=== PATIENT | male | born 1985 | race African-American/Black ===

== ENCOUNTER 2020-06-17 23:26 | Inpatient (IN) | payer OTHER ==
[~2020-06-17] VITALS: Ht 175.3 cm; Wt 84.1 kg
[2020-06-18] VITALS (12 sets, daily range): BP systolic 109–149; BP diastolic 58–93
[2020-06-18] MEDS ORDERED: DEXTROSE 50% 25 GM / 50ML DISP.SYRIN. IV ONE ×8 (00:13→06:15)
[2020-06-18 00:34] LABS: BASO # 0.1 x10^3/uL (0.0-0.2); BASO % 1 % (0-3); EOS # 0.2 x10^3/uL (0.0-0.7); EOS % 2 % (0-3); HEMATOCRIT 28.4 % (39.0-53.0); HEMOGLOBIN 9.4 g/dL (13.0-17.5); LYMPH # 0.7 x10^3/uL (1.0-4.8); LYMPH % 9 % (24-48); MEAN CORPUSCULAR HEMOGLOBIN 29 pg (25-35); MEAN CORPUSCULAR HGB CONC 33 g/dL (31-37); MEAN CORPUSCULAR VOLUME 88 fL (79-100); MONO # 0.4 x10^3/uL (0.0-1.1); MONO % 5 % (0-9); NEUT # 6.8 x10^3/uL (1.8-7.7); NEUT % 84 % (31-73); PLATELET COUNT 370 x10^3/uL (140-400); RED BLOOD COUNT 3.22 x10^6/uL (4.30-5.70); RED CELL DISTRIBUTION WIDTH 14.5 % (11.5-14.5); WHITE BLOOD COUNT 8.2 x10^3/uL (4.0-11.0)
[2020-06-18 01:06] LABS: BILIRUBIN,URINE NEGATIVE (NEG); CLARITY,URINE CLEAR; COLOR,URINE YELLOW; NITRITE,URINE NEGATIVE (NEG); PROTEIN,URINE >=300 mg/dL (NEG-TRACE); UROBILINOGEN,URINE 0.2 mg/dL (0.2 mg/dL)
[2020-06-18 01:08] LABS: CALCIUM 7.6 mg/dL (8.5-10.1); GFR 9.3; POTASSIUM 3.4 mmol/L (3.5-5.1)
[2020-06-18] MEDS ORDERED: IV DEXTROSE 5% - 0.9 % NACL 1,000 ML IV ONE (01:15)
[2020-06-18 01:23] LABS: BACTERIA,URINE FEW /HPF (0-FEW)
[2020-06-18] MEDS ORDERED: IV DEXTROSE 10% 1,000 ML IV SCH (04:45)
--- NOTE | 2020-06-18 05:22 | PHYS DOC ---
Past Medical History Past Medical History: Diabetes-Type II, SD, Other Additional Past Medical Histor: Unable to obtain Past Surgical History: Other Additional Past Surgical Histo: Unable to obtain Smoking Status: Never Smoker Alcohol Use: Occasionally General Adult EDM: Chief Complaint: ALTERED MENTAL STATUS HPI: HPI: Patient is a 34-year-old male who presents to the emergency room after having a hypoglycemic episode. Patient reportedly was at a friend's house and was co mpletely normal prior to event. He then became unconscious and had incontinence. EMS states that there was no report of seizure activity. Patient is unable to provide any history. They gave him D10 twice in route. Patient recently started dialysis. Unclear when last dialysis was. Review of Systems: Review of Systems: Unable to obtain Heart Score: Risk Factors: Risk Factors: DM, Current or recent (<one month) smoker, HTN, HLP, family history of CAD, obesity. Risk Scores: Score 0 - 3: 2.5% MACE over next 6 weeks - Discharge Home Score 4 - 6: 20.3% MACE over next 6 weeks - Admit for Clinical Observation Score 7 - 10: 72.7% MACE over next 6 weeks - Early Invasive Strategies Current Medications: Current Medications Medications (Trade) Dose Ordered Sig/Alirio Start Time Stop Time Status Last Admin Dose Admin Dextrose (Dextrose 50%-Water Syringe) 25 gm 1X ONCE 06/18/20 01:15 06/18/20 01:18 DC 06/18/20 02:25 25 GM Dextrose/Sodium Chloride 1,000 ml @ 75 mls/hr 1X ONCE 06/18/20 01:15 06/18/20 14:34 06/18/20 01:14 125 MLS/HR Allergies: Allergies: Allergies Coded Allergies Type Severity Reaction Last Updated Verified No Known Drug Allergies 06/18/20 No Physical Exam: PE: General: Lethargic, confused. Well Nourished, well hydrated. Cooperative HEENT: Atraumatic, EOMI, PERRL, airway patent, moist oral mucosa Neck: Supple, trachea midline Respiratory: CTA bilaterally, normal effort, no wheezing/crackles CV: RRR, no murmur, cap refill <2 GI: Soft, nondistended, nontender, no masses MSK: No obvious deformities, fistula in left upper extremity Skin: Warm, dry, intact Neuro: A&O x0, speech slurred and limited, sensory and motor grossly intact, no focal deficits Current Patient Data: Labs: Laboratory Tests Test 06/17/20 23:32 06/18/20 00:06 06/18/20 00:50 06/18/20 00:57 Glucose (Fingerstick) 83 mg/dL (70-99) 35 mg/dL (70-99) *L White Blood Count 8.2 x10^3/uL (4.0-11.0) Red Blood Count 3.22 x10^6/uL (4.30-5.70) L Hemoglobin 9.4 g/dL (13.0-17.5) L Hematocrit 28.4 % (39.0-53.0) L Mean Corpuscular Volume 88 fL (79-100) Mean Corpuscular Hemoglobin 29 pg (25-35) Mean Corpuscular Hemoglobin Concent 33 g/dL (31-37) Red Cell Distribution Width 14.5 % (11.5-14.5) Platelet Count 370 x10^3/uL (140-400) Neutrophils (%) (Auto) 84 % (31-73) H Lymphocytes (%) (Auto) 9 % (24-48) L Monocytes (%) (Auto) 5 % (0-9) Eosinophils (%) (Auto) 2 % (0-3) Basophils (%) (Auto) 1 % (0-3) Neutrophils # (Auto) 6.8 x10^3/uL (1.8-7.7) Lymphocytes # (Auto) 0.7 x10^3/uL (1.0-4.8) L Monocytes # (Auto) 0.4 x10^3/uL (0.0-1.1) Eosinophils # (Auto) 0.2 x10^3/uL (0.0-0.7) Basophils # (Auto) 0.1 x10^3/uL (0.0-0.2) Sodium Level 140 mmol/L (136-145) Potassium Level 3.4 mmol/L (3.5-5.1) L Chloride Level 104 mmol/L (98-107) Carbon Dioxide Level 29 mmol/L (21-32) Anion Gap 7 (6-14) Blood Urea Nitrogen 47 mg/dL (8-26) H Creatinine 8.0 mg/dL (0.7-1.3) H Estimated GFR (Cockcroft-Gault) 9.3 Glucose Level 63 mg/dL (70-99) L Calcium Level 7.6 mg/dL (8.5-10.1) L Urine Collection Type Unknown Urine Color Yellow Urine Clarity Clear Urine pH 7.0 (<5.0-8.0) Urine Specific [place] >=1.030 (1.000-1.030) Urine Protein >=300 mg/dL (NEG-TRACE) Urine Glucose (UA) 250 mg/dL (NEG) Urine Ketones (Stick) Negative mg/dL (NEG) Urine Blood Small (NEG) Urine Nitrite Negative (NEG) Urine Bilirubin Negative (NEG) Urine Urobilinogen Dipstick 0.2 mg/dL (0.2 mg/dL) Urine Leukocyte Esterase Negative (NEG) Urine RBC 6-10 /HPF (0-2) Urine WBC 5-10 /HPF (0-4) Urine Squamous Epithelial Cells Mod /LPF Urine Bacteria Few /HPF (0-FEW) Urine Mucus Mod /LPF Test 06/18/20 00:59 06/18/20 02:13 06/18/20 03:25 06/18/20 04:52 Glucose (Fingerstick) 54 mg/dL (70-99) L 24 mg/dL (70-99) *L 46 mg/dL (70-99) *L 41 mg/dL (70-99) *L Laboratory Tests 06/18/20 00:06 Laboratory Tests 06/18/20 00:50 Vital Signs: Vital Signs Date Time Temp Pulse Resp B/P (MAP) Pulse Ox O2 Delivery O2 Flow Rate FiO2 06/18/20 04:04 90.6 59 21 100 90.6 06/17/20 23:30 139/86 (103) Room Air EKG: EKG: [] Radiology/Procedures: Radiology/Procedures: [] Course & Med Decision Making: Course & Med Decision Making Pertinent Labs and Imaging studies reviewed. (See chart for details) Patient is a 34-year-old male who presents to the emergency room with hypoglycemia. Upon arrival patient's glucose is significantly improved and patient is more alert but unable to provide any history. He was not alert enough to eat. He became more lethargic while in the emergency room and his glucose dropped again. He had multiple episodes of hypoglycemia where he required D50. He initially was started on a D5 drip, however he continued to have hypoglycemia and due to his end-stage renal disease and concern for fluid overload he was placed on a D10 drip. Nephrology consult was placed so patient can have dialysis emergently. While in the emergency room he did have a signi ficant drop in temperature. Is unclear at this time the cause of his hypothermia. He initially was normothermic upon arrival to the emergency room. EMS did place an IV in his fistula arm which was removed. Patient will need to be admitted to the ICU for further care and evaluation. Dragon Disclaimer: Dragon Disclaimer: This electronic medical record was generated, in whole or in part, using a voice recognition dictation system. Critical Care Time Critical Care: Authorized and Performed by: Chad Vigil MD Total critical care time: approximately 70 minutes Due to a high probability of clinically significant, life threatening deterio ration, the patient required my highest level of preparedness to intervene emergently and I personally spent this critical care time directly and personally managing the patient. This critical care time included obtaining a history; examining the patient; pulse oximetry; ventilator management if nec essary; ordering and review of studies; arranging urgent treatment with development of a management plan; evaluation of patient's response to treatment; frequent reassessment; discussion with patient/family; and, discussions with other providers. This critical care time was performed to assess and manage the high probability of imminent, life-threatening deterioration that could result in multi-organ failure. It was exclusive of separately billable procedures and treating other patients and teaching time. Please see MDM section and the rest of the note for further information on patient assessment and treatment. Departure Departure Impression: Primary Impression: ESRD (end stage renal disease) Additional Impressions: Severe diabetic hypoglycemia Hypothermia Disposition: ADMITTED INPATIENT Condition: IMPROVED Referrals: NO PCP (PCP) CHAD VIGIL MD Jun 18, 2020 05:22
[2020-06-18 06:02] LABS: BARBITURATES NEG (NEG); BENZODIAZEPINES NEG (NEG); CANNABINOIDS POS (NEG); COCAINE NEG (NEG); METHADONE NEG (NEG); OPIATES NEG (NEG); PHENCYCLIDINE NEG (NEG)
[2020-06-18 06:09] LABS: AMPHETAMINE/METHAMPHETAMINE NEG (NEG)
--- NOTE | 2020-06-18 06:41 | PDOC1 ---
History and Physical Date of Admission Date of Admission 06/18/2020 Identification/Chief Complaint Chief Complaint I do not remember coming to the ER Source Source: Chart review, Patient History of Present Illness History of Present Illness Patient is a 34-year-old gentleman with significant past medical history that includes diabetes type 2 insulin requiring end-stage renal disease on hemodialysis Tuesday essential hypertension who was in his usual state of health until the evening of his admission when apparently he was dropped off by a friend after becoming unconscious at his house. Patient has a recent history of hospital stay at [facility] due to shortness of breath. When asked regarding that event the patient relates to me that he was told he had fluid in his lung. There are no records available for review. The patient has a cough that is productive of clear sputum. The patient denies any recent cold-like symptoms no coughing sneezing no shortness of breath except for what he was told was a matter of congestive heart failure. The patient denies sick contacts no fever or chills have been reported. The patient was found to have a critically low glycemia less than 40 which was treated in the emergency department and we have been asked to admit for further evaluation and treatment. At the present time the patient at the arrival in the intensive care unit is more alert and awake and will be reoriented nevertheless patient is unable to give me details of yesterday's events that led him to come to the emergency department. Patient is oriented in person time place and situation after being directed, he is not exhibiting focal neurological deficits plan of care has been explained in detail no concerns were voiced during my interview Past Medical History Cardiovascular: CAD, CHF, HTN, Hyperlipidemia Renal/: Chronic renal insuff Endocrine: Diabetes Past Surgical History Past Surgical History: No pertinent history Family History Family History: No Significant Social History Smoke: No ALCOHOL: none Drugs: None Current Problem List Problem List Problems Medical Problems: (1) ESRD (end stage renal disease) Status: Acute (2) Hypothermia Status: Acute (3) Severe diabetic hypoglycemia Status: Acute Current Medications Current Medications Current Medications Medications (Trade) Dose Ordered Sig/Alirio Start Time Stop Time Status Last Admin Dose Admin Dextrose (Dextrose 50%-Water Syringe) 25 gm 1X ONCE 06/18/20 06:15 06/18/20 06:16 DC 06/18/20 06:15 25 GM Dextrose/Sodium Chloride 1,000 ml @ 75 mls/hr 1X ONCE 06/18/20 01:15 06/18/20 14:34 06/18/20 01:14 125 MLS/HR Allergies Allergies Allergies Coded Allergies Type Severity Reaction Last Updated Verified No Known Drug Allergies 06/18/20 No ROS Review of System CONSTITUTIONAL: No fever or chills EYES: No recent changes SKIN: No rash or itching CARDIOVASCULAR: No chest pain, syncope, palpitations, or edema RESPIRATORY: No SOB or cough GASTROINTESTINAL: No nausea, vomiting or abdominal pain NEUROLOGICAL: No headaches or weakness ENDOCRINE: No cold or heat intolerance GENITOURINARY: No urgency or frequency of urination MUSCULOSKELETAL: No back pain or joint pain LYMPHATICS: No enlarged lymph nodes PSYCHIATRIC: No anxiety or depression Patient does not recall any events in does not give any symptoms prior to his visit Physical Exam Physical Exam Gen.: well-developed well-nourished in no apparent distress Head: Normal shape atraumatic Eyes: Pupils equal reactive to light and accommodation, normal conjunctivae and lids Ears: Normal shape Nose: Normal shape no trauma Mouth: No exudates of the back of throat no thrush no lesions Neck: Supple no JVD no carotid bruit or lymphadenopathy no thyromegaly Chest: Lungs clear to auscultation with good inspiratory effort no crackles rales or rhonchi Cardiovascular: S1-S2 regular rhythm no murmurs gallops or rubs Abdomen: Bowel sounds present soft nontender no hepatosplenomegaly appreciated sign Extremities: Left arm fistula with palpable thrill. No clubbing no cyanosis no edema peripheral pulses palpated bilaterally Neurological: Alert awake oriented in person time place and situation, cranial nerves II through XII intact, no motor or sensory deficits appreciated Psych: Appropriate mood, cooperative Vitals Vitals Vital Signs Date Time Temp Pulse Resp B/P (MAP) Pulse Ox O2 Delivery O2 Flow Rate FiO2 06/18/20 04:04 90.6 59 21 100 90.6 06/17/20 23:30 139/86 (103) Room Air Labs Labs Laboratory Tests Test 06/17/20 23:32 06/18/20 00:06 06/18/20 00:50 06/18/20 00:57 Glucose (Fingerstick) 83 mg/dL (70-99) 35 mg/dL (70-99) White Blood Count 8.2 x10^3/uL (4.0-11.0) Red Blood Count 3.22 x10^6/uL (4.30-5.70) Hemoglobin 9.4 g/dL (13.0-17.5) Hematocrit 28.4 % (39.0-53.0) Mean Corpuscular Volume 88 fL (79-100) Mean Corpuscular Hemoglobin 29 pg (25-35) Mean Corpuscular Hemoglobin Concent 33 g/dL (31-37) Red Cell Distribution Width 14.5 % (11.5-14.5) Platelet Count 370 x10^3/uL (140-400) Neutrophils (%) (Auto) 84 % (31-73) Lymphocytes (%) (Auto) 9 % (24-48) Monocytes (%) (Auto) 5 % (0-9) Eosinophils (%) (Auto) 2 % (0-3) Basophils (%) (Auto) 1 % (0-3) Neutrophils # (Auto) 6.8 x10^3/uL (1.8-7.7) Lymphocytes # (Auto) 0.7 x10^3/uL (1.0-4.8) Monocytes # (Auto) 0.4 x10^3/uL (0.0-1.1) Eosinophils # (Auto) 0.2 x10^3/uL (0.0-0.7) Basophils # (Auto) 0.1 x10^3/uL (0.0-0.2) Sodium Level 140 mmol/L (136-145) Potassium Level 3.4 mmol/L (3.5-5.1) Chloride Level 104 mmol/L (98-107) Carbon Dioxide Level 29 mmol/L (21-32) Anion Gap 7 (6-14) Blood Urea Nitrogen 47 mg/dL (8-26) Creatinine 8.0 mg/dL (0.7-1.3) Estimated GFR (Cockcroft-Gault) 9.3 Glucose Level 63 mg/dL (70-99) Calcium Level 7.6 mg/dL (8.5-10.1) Urine Collection Type Unknown Urine Color Yellow Urine Clarity Clear Urine pH 7.0 (<5.0-8.0) Urine Specific [place] >=1.030 (1.000-1.030) Urine Protein >=300 mg/dL (NEG-TRACE) Urine Glucose (UA) 250 mg/dL (NEG) Urine Ketones (Stick) Negative mg/dL (NEG) Urine Blood Small (NEG) Urine Nitrite Negative (NEG) Urine Bilirubin Negative (NEG) Urine Urobilinogen Dipstick 0.2 mg/dL (0.2 mg/dL) Urine Leukocyte Esterase Negative (NEG) Urine RBC 6-10 /HPF (0-2) Urine WBC 5-10 /HPF (0-4) Urine Squamous Epithelial Cells Mod /LPF Urine Bacteria Few /HPF (0-FEW) Urine Mucus Mod /LPF Urine Opiates Screen Neg (NEG) Urine Methadone Screen Neg (NEG) Urine Barbiturates Neg (NEG) Urine Phencyclidine Screen Neg (NEG) Urine Amphetamine/Methamphetamine Neg (NEG) Urine Benzodiazepines Screen Neg (NEG) Urine Cocaine Screen Neg (NEG) Urine Cannabinoids Screen Pos (NEG) Urine Ethyl Alcohol Neg (NEG) Test 06/18/20 00:59 06/18/20 02:13 06/18/20 03:25 06/18/20 04:52 Glucose (Fingerstick) 54 mg/dL (70-99) 24 mg/dL (70-99) 46 mg/dL (70-99) 41 mg/dL (70-99) Test 06/18/20 06:07 Glucose (Fingerstick) 336 mg/dL (70-99) Laboratory Tests Test 06/17/20 23:32 06/18/20 00:06 06/18/20 00:50 06/18/20 00:57 Glucose (Fingerstick) 83 mg/dL (70-99) 35 mg/dL (70-99) White Blood Count 8.2 x10^3/uL (4.0-11.0) Red Blood Count 3.22 x10^6/uL (4.30-5.70) Hemoglobin 9.4 g/dL (13.0-17.5) Hematocrit 28.4 % (39.0-53.0) Mean Corpuscular Volume 88 fL (79-100) Mean Corpuscular Hemoglobin 29 pg (25-35) Mean Corpuscular Hemoglobin Concent 33 g/dL (31-37) Red Cell Distribution Width 14.5 % (11.5-14.5) Platelet Count 370 x10^3/uL (140-400) Neutrophils (%) (Auto) 84 % (31-73) Lymphocytes (%) (Auto) 9 % (24-48) Monocytes (%) (Auto) 5 % (0-9) Eosinophils (%) (Auto) 2 % (0-3) Basophils (%) (Auto) 1 % (0-3) Neutrophils # (Auto) 6.8 x10^3/uL (1.8-7.7) Lymphocytes # (Auto) 0.7 x10^3/uL (1.0-4.8) Monocytes # (Auto) 0.4 x10^3/uL (0.0-1.1) Eosinophils # (Auto) 0.2 x10^3/uL (0.0-0.7) Basophils # (Auto) 0.1 x10^3/uL (0.0-0.2) Sodium Level 140 mmol/L (136-145) Potassium Level 3.4 mmol/L (3.5-5.1) Chloride Level 104 mmol/L (98-107) Carbon Dioxide Level 29 mmol/L (21-32) Anion Gap 7 (6-14) Blood Urea Nitrogen 47 mg/dL (8-26) Creatinine 8.0 mg/dL (0.7-1.3) Estimated GFR (Cockcroft-Gault) 9.3 Glucose Level 63 mg/dL (70-99) Calcium Level 7.6 mg/dL (8.5-10.1) Urine Collection Type Unknown Urine Color Yellow Urine Clarity Clear Urine pH 7.0 (<5.0-8.0) Urine Specific [place] >=1.030 (1.000-1.030) Urine Protein >=300 mg/dL (NEG-TRACE) Urine Glucose (UA) 250 mg/dL (NEG) Urine Ketones (Stick) Negative mg/dL (NEG) Urine Blood Small (NEG) Urine Nitrite Negative (NEG) Urine Bilirubin Negative (NEG) Urine Urobilinogen Dipstick 0.2 mg/dL (0.2 mg/dL) Urine Leukocyte Esterase Negative (NEG) Urine RBC 6-10 /HPF (0-2) Urine WBC 5-10 /HPF (0-4) Urine Squamous Epithelial Cells Mod /LPF Urine Bacteria Few /HPF (0-FEW) Urine Mucus Mod /LPF Urine Opiates Screen Neg (NEG) Urine Methadone Screen Neg (NEG) Urine Barbiturates Neg (NEG) Urine Phencyclidine Screen Neg (NEG) Urine Amphetamine/Methamphetamine Neg (NEG) Urine Benzodiazepines Screen Neg (NEG) Urine Cocaine Screen Neg (NEG) Urine Cannabinoids Screen Pos (NEG) Urine Ethyl Alcohol Neg (NEG) Test 06/18/20 00:59 06/18/20 02:13 06/18/20 03:25 06/18/20 04:52 Glucose (Fingerstick) 54 mg/dL (70-99) 24 mg/dL (70-99) 46 mg/dL (70-99) 41 mg/dL (70-99) Test 06/18/20 06:07 Glucose (Fingerstick) 336 mg/dL (70-99) VTE Prophylaxis Ordered VTE Prophylaxis Devices: No VTE Pharmacological Prophylaxi: Yes Assessment/Plan Assessment/Plan Acute hypoglycemia Metabolic encephalopathy secondary to the above currently resolved Hypothermia which may be due to the above as well End-stage renal disease on hemodialysis Tuesday Essential hypertension Diabetes mellitus type 2 insulin requiring Recent hospitalization for CHF and dyspnea as a consequence Plan Recheck glycemia if less than 100 will give example of D50 Resume home medications once available for review Consult nephrology for dialysis Request records from [facility] Supportive measures Follow neurological exam closely Follow hemodynamics DVT prophylaxis with heparin Justifications for Admission Other Justification TEQUILA HOLLIS MD Jun 18, 2020 06:41
[2020-06-18] MEDS ORDERED: guaiFENesin ORAL 200 MG/10 ML LIQUID. PO PRN (06:45)
[2020-06-18] MEDS ORDERED: DOCUSATE SODIUM 100 MG CAPSULE. PO PRN (06:45)
[2020-06-18] MEDS ORDERED: ONDANSETRON PF 4 MG/2 ML VIAL. IV PRN (06:45)
[2020-06-18] MEDS ORDERED: LORazepam 0.5 MG TABLET PO PRN (06:45)
[2020-06-18] MEDS ORDERED: ALBUTEROL SULFATE 2.5 MG/3 ML NEBU. NEB PRN (06:45)
[2020-06-18] MEDS ORDERED: ZOLPIDEM 5 MG TABLET. PO PRN (06:45)
[2020-06-18] MEDS ORDERED: diphenhydrAMINE 50 MG/ML VIAL IVP PRN (06:45)
[2020-06-18] MEDS ORDERED: DEXTROSE 50% 25 GM / 50ML DISP.SYRIN. IV PRN (06:45)
[2020-06-18] MEDS ORDERED: ACETAMINOPHEN 325 MG TABLET. PO PRN (06:45)
--- NOTE | 2020-06-18 07:21 | NUR ---
Patient arrived to room 103 via gurney accompanied by ED staff x2 at 0530. Patient drowsy but oriented and forgetful. Patient attached to ICU monitors--SR on monitor. Patient RA at this time, SIMENTAL, temperature low at 93.3 axillary (india hugger placed on patient), lungs CTA, S1S2 heart tones heard. Patient had BM on arrival to unit--liquid orange/yellow. Patient states he has had chronic diarrhea for [address], patent IV present. Patient has 2 dialysis accesses--L arm fistula and R chest temporary dialysis catheter. Sign placed in room to notify staff of L arm fistula. Dr. Blevins present at bedside on admission--orders received to give 3 amps D50. 3 amps given and patient started on D10 at 100/hr. Blood glucose now improved but will continue to monitor hourly. Patient given soda and shanice crackers/peanut butter. Dr. Blevins notifed of blood glucose change. Patient oriented to unit routines, bed controls, tv controls, call light, diet, and activity. Patient stable at this time, will send off to [facility] to get previous records. Will continue to monitor patient.
[2020-06-18] MEDS: INSULIN LISPRO 300 UNITS/3 ML VIAL. SQ SCH ×3 (08:00→17:37)
[2020-06-18] MEDS ORDERED: INSU100V11 IJ (08:16)
[2020-06-18] MEDS ORDERED: TORS100T3 PO (08:16)
[2020-06-18] MEDS ORDERED: [UNRECOGNIZED DRUG - CODE] PO (08:16)
[2020-06-18] MEDS ORDERED: CLON0.1T PO (08:16)
[2020-06-18] MEDS ORDERED: CALC0.5C8 PO (08:16)
[2020-06-18] MEDS ORDERED: CARV25TA2 PO (08:16)
[2020-06-18] MEDS ORDERED: ATOR40TA59 PO (08:16)
[2020-06-18] MEDS ORDERED: PANT40TA77 PO (08:16)
[2020-06-18] MEDS ORDERED: AMLO-187 PO (08:16)
[2020-06-18] MEDS ORDERED: CALC500T31 PO (08:16)
[2020-06-18] MEDS ORDERED: CEFD300C PO (08:16)
[2020-06-18] MEDS ORDERED: GABA-585 PO (08:16)
[2020-06-18] MEDS ORDERED: ERGO500027 PO (08:16)
[2020-06-18] MEDS ORDERED: diphenhydrAMINE 50 MG/ML VIAL IV PRN ×2 (08:30)
[2020-06-18] MEDS ORDERED: IV NORMAL SALINE 1000ML BAG 1,000 ML IV PRN ×2 (08:30)
[2020-06-18] MEDS ORDERED: DIALYSIS PATIENT. MC PRN (08:30)
--- NOTE | 2020-06-18 08:58 | NUR ---
Requested records from [facility], covid was tested at [facility] and came back negative.
--- NOTE | 2020-06-18 09:33 | PDOC2 ---
CONSULT Date of Consult Date of Consult DATE: 06/18/20 TIME: 09:18 Reason for Consult Reason for Consult: ESRD History of Present Illness Reason for Visit: Patient is a 34-year-old male with past medical history of diabetes type 1 on insulin , recent ESRD on HD , HTN . He was dced on Tuesday morning from [facility] , last HD was on Tuesday . He reports he received Insulin at the hospital prior to dc and is not sure whether it was short or long acting . After dc he was running some errands with friend but his friend notice AMS , Pt reports he was seeing [employer] etc .His friend was dropped off by a friend to [facility] ER . He reports he was at [facility] for Shortness of breath . Currently denies any SOB or CP . C/O cough that is productive of clear sputum Denies fever or chills, No nausea, vomiting or abdominal pain. No headaches . Denies any Urinary complaints - No urgency or frequency of urination In the ED he was found to have a critically low glucose less than 40 and had multiple episodes of hypoglycemia required D50. He initially was started on a D5 drip, however he continued to have hypoglycemia switched to D10 drip. Per ER physician he was lethargic at presentatopn and was unable to give any history but provider confirmed he is not on Sulfonylureas He has been on HD since 3 weeks, has Tunnelled HDC . Has marin AVF, not being used yet . He follows with Dr. Monae Past Medical History Cardiovascular: CAD, CHF, HTN, Hyperlipidemia Renal/: Chronic renal insuff Endocrine: Diabetes Past Surgical History Past Surgical History: No pertinent history Family History Family History: No Significant Social History No ALCOHOL: none Drugs: None Current Problem List Problem List Problems Medical Problems: (1) ESRD (end stage renal disease) Status: Acute (2) Hypothermia Status: Acute (3) Severe diabetic hypoglycemia Status: Acute Current Medications Current Medications Current Medications Dextrose (Dextrose 50%-Water Syringe) 25 gm STK-MED ONCE IV ; Start 06/18/20 at 00:13; Stop 06/18/20 at 00:13; Status DC Dextrose (Dextrose 50%-Water Syringe) 25 gm 1X ONCE IV Last administered on at 02:25; Start 06/18/20 at 01:15; Stop 06/18/20 at 01:18; Status DC Dextrose/Sodium Chloride 1,000 ml @ 75 mls/hr 1X ONCE IV Last administered on 06/18/20at 01:14; Start 06/18/20 at 01:15; Stop 06/18/20 at 14:34 Dextrose (Dextrose 50%-Water Syringe) 25 gm 1X ONCE IV Last administered on 06/18/20at 02:30; Start 06/18/20 at 02:30; Stop 06/18/20 at 02:31; Status DC Dextrose (Dextrose 50%-Water Syringe) 25 gm 1X ONCE IV Last administered on 06/18/20at 03:30; Start 06/18/20 at 04:45; Stop 06/18/20 at 04:46; Status DC Dextrose 1,000 ml @ 100 mls/hr Q10H IV Last administered on 06/18/20at 04:45; Start 06/18/20 at 04:45 Dextrose (Dextrose 50%-Water Syringe) 50 gm 1X ONCE IV Last administered on 06/18/20at 05:08; Start 06/18/20 at 05:15; Stop 06/18/20 at 05:16; Status DC Dextrose (Dextrose 50%-Water Syringe) 25 gm 1X ONCE IV Last administered on 06/18/20at 06:15; Start 06/18/20 at 06:15; Stop 06/18/20 at 06:16; Status DC Dextrose (Dextrose 50%-Water Syringe) 25 gm 1X ONCE IV Last administered on at 06:15; Start 06/18/20 at 06:15; Stop 06/18/20 at 06:16; Status DC Dextrose (Dextrose 50%-Water Syringe) 25 gm 1X ONCE IV Last administered on 06/18/20at 06:15; Start 06/18/20 at 06:15; Stop 06/18/20 at 06:16; Status DC Ondansetron HCl (Zofran) 4 mg PRN Q4HRS PRN IV NAUSEA/VOMITING; Start 06/18/20 at 06:45 Zolpidem Tartrate (Ambien) 5 mg PRN QHS PRN PO INSOMNIA; Start 06/18/20 at 06:45 Acetaminophen (Tylenol) 650 mg PRN Q4HRS PRN PO TEMP OVER 100.4F OR MILD PAIN; Start 06/18/20 at 06:45 Diphenhydramine HCl (Benadryl) 25 mg PRN Q4HRS PRN IVP ITCHING; Start 06/18/20 at 06:45 Docusate Sodium (Colace) 100 mg PRN BID PRN PO HARD STOOLS; Start 06/18/20 at 06:45 Albuterol Sulfate (Ventolin Neb Soln) 2.5 mg PRN Q4HRS PRN NEB SHORTNESS OF BREATH; Start 06/18/20 at 06:45 Guaifenesin (Robitussin) 200 mg PRN Q4HRS PRN PO COUGH; Start 06/18/20 at 06:45 Lorazepam (Ativan) 0.5 mg PRN Q4HRS PRN PO ANXIETY / AGITATION; Start 06/18/20 at 06:45 Insulin Human Lispro (HumaLOG) 0-5 UNITS TIDWMEALS SQ ; Start 06/18/20 at 08:00 Dextrose (Dextrose 50%-Water Syringe) 12.5 gm PRN Q15MIN PRN IV SEE COMMENTS; Start 06/18/20 at 06:45 Sodium Chloride 1,000 ml @ 1,000 mls/hr Q1H PRN IV hypotension; Start 06/18/20 at 08:30; Stop 06/18/20 at 14:29 Diphenhydramine HCl (Benadryl) 25 mg 1X PRN PRN IV ITCHING; Start 06/18/20 at 08:30; Stop 06/19/20 at 08:29 Diphenhydramine HCl (Benadryl) 25 mg 1X PRN PRN IV ITCHING; Start 06/18/20 at 08:30; Stop 06/19/20 at 08:29 Sodium Chloride 1,000 ml @ 400 mls/hr Q2H30M PRN IV PATENCY; Start 06/18/20 at 08:30; Stop 06/18/20 at 20:29 Info (PHARMACY MONITORING -- do not chart) 1 each PRN DAILY PRN MC SEE COMMENTS; Start 06/18/20 at 08:30 Active Scripts Active Reported Torsemide 100 Mg Tablet 1 Tab PO DAILY 30 Days Pantoprazole Sodium (Pantoprazole Sodium) 40 Mg Tablet.dr 40 Mg PO DAILYAC Gabapentin (Gabapentin) 100 Mg Capsule 100 Mg PO TID Vitamin D2 (Ergocalciferol (Vitamin D2)) 1,250 Mcg Capsule 1,250 Mcg PO TUESDAY Carvedilol 25 Mg Tablet 25 Mg PO BIDWMEALS Calcium Carbonate 500 Mg Tablet 1 Tab PO BID 30 Days Calcitriol 0.5 Mcg Capsule 1 Cap PO DAILY Atorvastatin Calcium 40 Mg Tablet 1 Tab PO DAILY Clonidine Hcl 0.1 Mg Tablet 0.1 Mg PO BID Novolin R (Insulin Regular, Human) 100 Unit/1 Ml Vial 9 Unit IJ BIDAC Amlodipine Besylate 10 Mg Tablet 10 Mg PO DAILY Sm Vitamin B Complex Tablet (Vitamin B Complex/Folic Acid) 0.4 Mg Tablet 1 Tab PO DAILY 30 Days Cefdinir 300 Mg Capsule 1 Cap PO BID Allergies Allergies: Coded Allergies: No Known Drug Allergies (Unverified , 06/18/20) ROS Review of System As per HPI, rest of the ROS is negative Physical Exam Physical Exam Gen.: NAD HEEN OM moist Neck: Supple Chest: Lungs CTA , Non labored Cardiovascular: S1-S2 regular Abdomen: Bowel sounds present, soft, nontender no hepatosplenomegaly Extremities: Left arm fistula with palpable thrill. No clubbing no cyanosis no edema Neurological: Alert awake oriented in person time place and situation, grossly normal Psych: Appropriate mood, cooperative [place] + Vital Signs Vital Signs Date Time Temp Pulse Resp B/P (MAP) Pulse Ox O2 Delivery O2 Flow Rate FiO2 06/18/20 08:52 98 Room Air 06/18/20 06:30 72 18 136/87 (103) 06/18/20 06:00 93.9 93.9 Assessment & Plan ESRD New Onset , has been on HD approx [address] Monae's care Last Dialysis was on Tuesday @ [facility] , Has some RRF Seen on Dialysis today, tolerating well, discussed treatment plan with cooperative education director Access- permacath. AVF Lt - not ready for use Acute hypoglycemia- severe at presentation , Improved prior to initiating HD . Defer to primary Metabolic encephalopathy secondary to the above currently resolved Hypothermia Essential hypertension- Home antihypertensives Diabetes mellitus type 1 insulin requiring Recent hospitalization for CHF Labs Labs Laboratory Tests Test 06/17/20 23:32 06/18/20 00:06 06/18/20 00:50 06/18/20 00:57 Glucose (Fingerstick) 83 mg/dL (70-99) 35 mg/dL (70-99) White Blood Count 8.2 x10^3/uL (4.0-11.0) Red Blood Count 3.22 x10^6/uL (4.30-5.70) Hemoglobin 9.4 g/dL (13.0-17.5) Hematocrit 28.4 % (39.0-53.0) Mean Corpuscular Volume 88 fL (79-100) Mean Corpuscular Hemoglobin 29 pg (25-35) Mean Corpuscular Hemoglobin Concent 33 g/dL (31-37) Red Cell Distribution Width 14.5 % (11.5-14.5) Platelet Count 370 x10^3/uL (140-400) Neutrophils (%) (Auto) 84 % (31-73) Lymphocytes (%) (Auto) 9 % (24-48) Monocytes (%) (Auto) 5 % (0-9) Eosinophils (%) (Auto) 2 % (0-3) Basophils (%) (Auto) 1 % (0-3) Neutrophils # (Auto) 6.8 x10^3/uL (1.8-7.7) Lymphocytes # (Auto) 0.7 x10^3/uL (1.0-4.8) Monocytes # (Auto) 0.4 x10^3/uL (0.0-1.1) Eosinophils # (Auto) 0.2 x10^3/uL (0.0-0.7) Basophils # (Auto) 0.1 x10^3/uL (0.0-0.2) Sodium Level 140 mmol/L (136-145) Potassium Level 3.4 mmol/L (3.5-5.1) Chloride Level 104 mmol/L (98-107) Carbon Dioxide Level 29 mmol/L (21-32) Anion Gap 7 (6-14) Blood Urea Nitrogen 47 mg/dL (8-26) Creatinine 8.0 mg/dL (0.7-1.3) Estimated GFR (Cockcroft-Gault) 9.3 Glucose Level 63 mg/dL (70-99) Calcium Level 7.6 mg/dL (8.5-10.1) Urine Collection Type Unknown Urine Color Yellow Urine Clarity Clear Urine pH 7.0 (<5.0-8.0) Urine Specific [place] >=1.030 (1.000-1.030) Urine Protein >=300 mg/dL (NEG-TRACE) Urine Glucose (UA) 250 mg/dL (NEG) Urine Ketones (Stick) Negative mg/dL (NEG) Urine Blood Small (NEG) Urine Nitrite Negative (NEG) Urine Bilirubin Negative (NEG) Urine Urobilinogen Dipstick 0.2 mg/dL (0.2 mg/dL) Urine Leukocyte Esterase Negative (NEG) Urine RBC 6-10 /HPF (0-2) Urine WBC 5-10 /HPF (0-4) Urine Squamous Epithelial Cells Mod /LPF Urine Bacteria Few /HPF (0-FEW) Urine Mucus Mod /LPF Urine Opiates Screen Neg (NEG) Urine Methadone Screen Neg (NEG) Urine Barbiturates Neg (NEG) Urine Phencyclidine Screen Neg (NEG) Urine Amphetamine/Methamphetamine Neg (NEG) Urine Benzodiazepines Screen Neg (NEG) Urine Cocaine Screen Neg (NEG) Urine Cannabinoids Screen Pos (NEG) Urine Ethyl Alcohol Neg (NEG) Test 06/18/20 00:59 06/18/20 02:13 06/18/20 03:25 06/18/20 04:52 Glucose (Fingerstick) 54 mg/dL (70-99) 24 mg/dL (70-99) 46 mg/dL (70-99) 41 mg/dL (70-99) Test 06/18/20 06:07 06/18/20 06:31 06/18/20 08:25 Glucose (Fingerstick) 336 mg/dL (70-99) 242 mg/dL (70-99) 242 mg/dL (70-99) Laboratory Tests Test 06/17/20 23:32 06/18/20 00:06 06/18/20 00:50 06/18/20 00:57 Glucose (Fingerstick) 83 mg/dL (70-99) 35 mg/dL (70-99) White Blood Count 8.2 x10^3/uL (4.0-11.0) Red Blood Count 3.22 x10^6/uL (4.30-5.70) Hemoglobin 9.4 g/dL (13.0-17.5) Hematocrit 28.4 % (39.0-53.0) Mean Corpuscular Volume 88 fL (79-100) Mean Corpuscular Hemoglobin 29 pg (25-35) Mean Corpuscular Hemoglobin Concent 33 g/dL (31-37) Red Cell Distribution Width 14.5 % (11.5-14.5) Platelet Count 370 x10^3/uL (140-400) Neutrophils (%) (Auto) 84 % (31-73) Lymphocytes (%) (Auto) 9 % (24-48) Monocytes (%) (Auto) 5 % (0-9) Eosinophils (%) (Auto) 2 % (0-3) Basophils (%) (Auto) 1 % (0-3) Neutrophils # (Auto) 6.8 x10^3/uL (1.8-7.7) Lymphocytes # (Auto) 0.7 x10^3/uL (1.0-4.8) Monocytes # (Auto) 0.4 x10^3/uL (0.0-1.1) Eosinophils # (Auto) 0.2 x10^3/uL (0.0-0.7) Basophils # (Auto) 0.1 x10^3/uL (0.0-0.2) Sodium Level 140 mmol/L (136-145) Potassium Level 3.4 mmol/L (3.5-5.1) Chloride Level 104 mmol/L (98-107) Carbon Dioxide Level 29 mmol/L (21-32) Anion Gap 7 (6-14) Blood Urea Nitrogen 47 mg/dL (8-26) Creatinine 8.0 mg/dL (0.7-1.3) Estimated GFR (Cockcroft-Gault) 9.3 Glucose Level 63 mg/dL (70-99) Calcium Level 7.6 mg/dL (8.5-10.1) Urine Collection Type Unknown Urine Color Yellow Urine Clarity Clear Urine pH 7.0 (<5.0-8.0) Urine Specific [place] >=1.030 (1.000-1.030) Urine Protein >=300 mg/dL (NEG-TRACE) Urine Glucose (UA) 250 mg/dL (NEG) Urine Ketones (Stick) Negative mg/dL (NEG) Urine Blood Small (NEG) Urine Nitrite Negative (NEG) Urine Bilirubin Negative (NEG) Urine Urobilinogen Dipstick 0.2 mg/dL (0.2 mg/dL) Urine Leukocyte Esterase Negative (NEG) Urine RBC 6-10 /HPF (0-2) Urine WBC 5-10 /HPF (0-4) Urine Squamous Epithelial Cells Mod /LPF Urine Bacteria Few /HPF (0-FEW) Urine Mucus Mod /LPF Urine Opiates Screen Neg (NEG) Urine Methadone Screen Neg (NEG) Urine Barbiturates Neg (NEG) Urine Phencyclidine Screen Neg (NEG) Urine Amphetamine/Methamphetamine Neg (NEG) Urine Benzodiazepines Screen Neg (NEG) Urine Cocaine Screen Neg (NEG) Urine Cannabinoids Screen Pos (NEG) Urine Ethyl Alcohol Neg (NEG) Test 06/18/20 00:59 06/18/20 02:13 06/18/20 03:25 06/18/20 04:52 Glucose (Fingerstick) 54 mg/dL (70-99) 24 mg/dL (70-99) 46 mg/dL (70-99) 41 mg/dL (70-99) Test 06/18/20 06:07 06/18/20 06:31 06/18/20 08:25 Glucose (Fingerstick) 336 mg/dL (70-99) 242 mg/dL (70-99) 242 mg/dL (70-99) Review All relevant outside records, renal labs, imaging studies, telemetry/EKG's were reviewed. Images Images None MARTIN WHITTEN MD Jun 18, 2020 09:33
[2020-06-18] MEDS: CALCITRIOL 0.25 MCG CAPSULE. PO SCH (12:15)
[2020-06-18] MEDS: amLODIPine BESYLATE 10 MG TABLET PO SCH (12:16)
[2020-06-18] MEDS: PANTOPRAZOLE 40 MG TABLET.DR. PO SCH (12:16)
[2020-06-18] MEDS: CALCIUM CARBONATE 500 MG TABLET PO SCH ×2 (12:16→20:58)
[2020-06-18] MEDS: TORSEMIDE 20 MG TABLET. PO SCH (12:18)
[2020-06-18] MEDS: ATORVASTATIN CALCIUM 40 MG TABLET. PO SCH (12:29)
[2020-06-18] MEDS: cloNIDine HCL 0.1 MG TABLET PO SCH ×2 (12:29→20:58)
--- NOTE | 2020-06-18 12:32 | NUR ---
dialysis run completed. Pt awake alert. FSBS 140 and temp 98.2 VSS Will restart home meds and cont to monito BS and temp. Pt wants to eat. Up to commode freq with liq north stool which he says is chronic. CDiff spec sent earlier to r/o per protocol. Mother updated
--- NOTE | 2020-06-18 13:11 | NUR ---
SS following for discharge planning. SS reviewed pt chart and discussed with pt RN. Pt is from home and is currently on room air. Pt has hemodialysis at [facility], ; fax [phone], Tuesday, Tuesday, and Tuesday. SS will continue to follow for discharge planning.
[2020-06-18] MEDS: GABAPENTIN 100 MG CAPSULE. PO SCH ×2 (14:16→20:58)
[2020-06-18] MEDS: VITAMIN B COMPLEX TABLET. PO SCH (14:16)
[2020-06-18] MEDS: CARVEDILOL 12.5 MG TABLET. PO SCH (16:25)
--- NOTE | 2020-06-18 18:40 | NUR ---
transferred to rm 248 per w/c with cell phone and belongings bag.
[2020-06-19 03:10] VITALS: BP 124/78
[2020-06-19 07:00] VITALS: BP 124/70
[2020-06-19] MEDS: cloNIDine HCL 0.1 MG TABLET PO SCH (08:07)
[2020-06-19] MEDS: VITAMIN B COMPLEX TABLET. PO SCH (08:08)
[2020-06-19] MEDS: GABAPENTIN 100 MG CAPSULE. PO SCH ×2 (08:08→14:06)
[2020-06-19] MEDS: CARVEDILOL 12.5 MG TABLET. PO SCH (08:08)
[2020-06-19] MEDS: PANTOPRAZOLE 40 MG TABLET.DR. PO SCH (08:08)
[2020-06-19] MEDS: CALCIUM CARBONATE 500 MG TABLET PO SCH (08:09)
[2020-06-19] MEDS: TORSEMIDE 20 MG TABLET. PO SCH (08:09)
[2020-06-19] MEDS: ATORVASTATIN CALCIUM 40 MG TABLET. PO SCH (08:09)
[2020-06-19] MEDS: amLODIPine BESYLATE 10 MG TABLET PO SCH (08:09)
[2020-06-19] MEDS: CALCITRIOL 0.25 MCG CAPSULE. PO SCH (08:09)
[2020-06-19] MEDS: INSULIN LISPRO 300 UNITS/3 ML VIAL. SQ SCH ×2 (08:13→12:23)
--- NOTE | 2020-06-19 09:42 | PDOC ---
DATE OF SERVICE DATE: 06/19/20 TIME: 09:38 SUBJECTIVE ROS stable, denies any complaints OBJECTIVE Vital Signs Vital Signs Date Time Temp Pulse Resp B/P (MAP) Pulse Ox O2 Delivery O2 Flow Rate FiO2 06/19/20 08:09 80 124/70 06/19/20 03:10 99.8 18 98 Room Air 99.8 I & 0 Intake and Output 06/19/20 07:00 Intake Total 970 ml Output Total 120 ml Balance 850 ml Intake Oral 670 ml IV Total 300 ml Output Urine Total 120 ml # Bowel Movements 5 PHYSICAL EXAM Physical Exam Gen.: NAD HEEN OM moist Neck: Supple Chest: Lungs CTA , Non labored Cardiovascular: S1-S2 regular Abdomen: Bowel sounds present, soft, nontender no hepatosplenomegaly Extremities: Left arm fistula with palpable thrill. No clubbing no cyanosis no edema Neurological: Alert awake oriented in person time place and situation, grossly normal Psych: Appropriate mood, cooperative DIAGNOSIS/ASSESSMENT Assessment & Plan ESRD New Onset , has been on HD approx [address] Monae's care Has some RRF . No indication for HD today Access- permacath. AVF Lt - not ready for use Acute hypoglycemia- severe at presentation Resolved Metabolic encephalopathy secondary to the above currently resolved Essential hypertension- Home antihypertensives Diabetes mellitus type 1 insulin requiring Recent hospitalization for CHF DC per primary COMMENT/RELEVANT DATA Meds Current Medications Medications (Trade) Dose Ordered Sig/Alirio Start Time Stop Time Status Last Admin Dose Admin Acetaminophen (Tylenol) 650 mg PRN Q4HRS PRN 06/18/20 06:45 Albuterol Sulfate (Ventolin Neb Soln) 2.5 mg PRN Q4HRS PRN 06/18/20 06:45 Amlodipine Besylate (Norvasc) 10 mg DAILY 06/18/20 11:00 06/19/20 08:09 10 MG Atorvastatin Calcium (Lipitor) 40 mg DAILY 06/18/20 11:00 06/19/20 08:09 40 MG Calcitriol (Rocaltrol) 0.5 mcg DAILY 06/18/20 11:00 06/19/20 08:09 0.5 MCG Calcium Carbonate/ Glycine (Oscal) 500 mg BID 06/18/20 11:00 06/19/20 08:09 500 MG Carvedilol (Coreg) 25 mg BIDWMEALS 06/18/20 17:00 06/19/20 08:08 25 MG Clonidine HCl (Catapres) 0.1 mg BID 06/18/20 11:00 06/19/20 08:07 0.1 MG Dextrose (Dextrose 50%-Water Syringe) 12.5 gm PRN Q15MIN PRN 06/18/20 06:45 Dextrose/Sodium Chloride 1,000 ml @ 75 mls/hr 1X ONCE 06/18/20 01:15 06/18/20 14:34 DC 06/18/20 01:14 125 MLS/HR Diphenhydramine HCl (Benadryl) 25 mg 1X PRN PRN 06/18/20 08:30 06/19/20 08:29 DC Docusate Sodium (Colace) 100 mg PRN BID PRN 06/18/20 06:45 Ergocalciferol (Vitamin D2) 50,000 unit QM@0900 06/23/20 09:00 Gabapentin (Neurontin) 100 mg TID 06/18/20 14:00 06/19/20 08:08 100 MG Guaifenesin (Robitussin) 200 mg PRN Q4HRS PRN 06/18/20 06:45 Info (PHARMACY MONITORING -- do not chart) 1 each PRN DAILY PRN 06/18/20 08:30 Insulin Human Lispro (HumaLOG) 0-5 UNITS TIDWMEALS 06/18/20 08:00 06/19/20 08:13 5 UNITS Lorazepam (Ativan) 0.5 mg PRN Q4HRS PRN 06/18/20 06:45 Ondansetron HCl (Zofran) 4 mg PRN Q4HRS PRN 06/18/20 06:45 Pantoprazole Sodium (Protonix) 40 mg DAILYAC 06/18/20 11:00 06/19/20 08:08 40 MG Sodium Chloride 1,000 ml @ 400 mls/hr Q2H30M PRN 06/18/20 08:30 06/18/20 20:29 DC Torsemide (Demadex) 100 mg DAILY 06/18/20 11:00 06/19/20 08:09 100 MG Vitamin B Complex (He B) 1 tab DAILY 06/18/20 11:00 06/19/20 08:08 1 TAB Zolpidem Tartrate (Ambien) 5 mg PRN QHS PRN 06/18/20 06:45 Lab Laboratory Tests Test 06/18/20 10:39 06/18/20 12:25 06/18/20 14:19 06/18/20 17:23 Glucose (Fingerstick) 174 mg/dL (70-99) 147 mg/dL (70-99) 168 mg/dL (70-99) 197 mg/dL (70-99) Test 06/18/20 21:01 06/19/20 07:31 Glucose (Fingerstick) 283 mg/dL (70-99) 302 mg/dL (70-99) Results All relevant outside records, renal labs, imaging studies, telemetry/EKG's were reviewed. Justicifation of Admission Dx: Justifications for Admission: Justification of Admission Dx: N/A MARTIN WHITTEN MD Jun 19, 2020 09:42
--- NOTE | 2020-06-19 10:50 | NUR ---
SS following up with discharge planning. SS reviewed pt chart and discussed with pt RN. Pt is currently on room air. SS phoned and faxed updated clinical to [facility], ; fax [phone]. Possible discharge to home today. SS will continue to follow for discharge planning.
[2020-06-19 11:00] VITALS: BP 130/81
--- NOTE | 2020-06-19 12:24 | PDOC3 ---
Discharge Summary Visit Information Date of Admission: Jun 18, 2020 Date of Discharge: Jun 19, 2020 Admitting Diagnosis Comment: Acute hypoglycemia Metabolic encephalopathy secondary to the above currently resolved Hypothermia which may be due to the above as well End-stage renal disease on hemodialysis Tuesday Essential hypertension Diabetes mellitus type 2 insulin requiring Recent hospitalization for CHF and dyspnea as a consequence Final Diagnosis Problems Medical Problems: (1) ESRD (end stage renal disease) Status: Acute (2) Hypothermia Status: Acute (3) Severe diabetic hypoglycemia resolved Status: Acute Brief Hospital Course Allergies Allergies Coded Allergies Type Severity Reaction Last Updated Verified No Known Drug Allergies 06/18/20 No Vital Signs Vital Signs Date Time Temp Pulse Resp B/P (MAP) Pulse Ox O2 Delivery O2 Flow Rate FiO2 06/19/20 11:00 98.6 78 20 130/81 (97) 98 Room Air 98.6 Lab Results Laboratory Tests Test 06/17/20 23:32 06/18/20 00:06 06/18/20 00:50 06/18/20 00:57 Glucose (Fingerstick) 83 mg/dL (70-99) 35 mg/dL (70-99) White Blood Count 8.2 x10^3/uL (4.0-11.0) Red Blood Count 3.22 x10^6/uL (4.30-5.70) Hemoglobin 9.4 g/dL (13.0-17.5) Hematocrit 28.4 % (39.0-53.0) Mean Corpuscular Volume 88 fL (79-100) Mean Corpuscular Hemoglobin 29 pg (25-35) Mean Corpuscular Hemoglobin Concent 33 g/dL (31-37) Red Cell Distribution Width 14.5 % (11.5-14.5) Platelet Count 370 x10^3/uL (140-400) Neutrophils (%) (Auto) 84 % (31-73) Lymphocytes (%) (Auto) 9 % (24-48) Monocytes (%) (Auto) 5 % (0-9) Eosinophils (%) (Auto) 2 % (0-3) Basophils (%) (Auto) 1 % (0-3) Neutrophils # (Auto) 6.8 x10^3/uL (1.8-7.7) Lymphocytes # (Auto) 0.7 x10^3/uL (1.0-4.8) Monocytes # (Auto) 0.4 x10^3/uL (0.0-1.1) Eosinophils # (Auto) 0.2 x10^3/uL (0.0-0.7) Basophils # (Auto) 0.1 x10^3/uL (0.0-0.2) Sodium Level 140 mmol/L (136-145) Potassium Level 3.4 mmol/L (3.5-5.1) Chloride Level 104 mmol/L (98-107) Carbon Dioxide Level 29 mmol/L (21-32) Anion Gap 7 (6-14) Blood Urea Nitrogen 47 mg/dL (8-26) Creatinine 8.0 mg/dL (0.7-1.3) Estimated GFR (Cockcroft-Gault) 9.3 Glucose Level 63 mg/dL (70-99) Calcium Level 7.6 mg/dL (8.5-10.1) Urine Collection Type Unknown Urine Color Yellow Urine Clarity Clear Urine pH 7.0 (<5.0-8.0) Urine Specific [place] >=1.030 (1.000-1.030) Urine Protein >=300 mg/dL (NEG-TRACE) Urine Glucose (UA) 250 mg/dL (NEG) Urine Ketones (Stick) Negative mg/dL (NEG) Urine Blood Small (NEG) Urine Nitrite Negative (NEG) Urine Bilirubin Negative (NEG) Urine Urobilinogen Dipstick 0.2 mg/dL (0.2 mg/dL) Urine Leukocyte Esterase Negative (NEG) Urine RBC 6-10 /HPF (0-2) Urine WBC 5-10 /HPF (0-4) Urine Squamous Epithelial Cells Mod /LPF Urine Bacteria Few /HPF (0-FEW) Urine Mucus Mod /LPF Urine Opiates Screen Neg (NEG) Urine Methadone Screen Neg (NEG) Urine Barbiturates Neg (NEG) Urine Phencyclidine Screen Neg (NEG) Urine Amphetamine/Methamphetamine Neg (NEG) Urine Benzodiazepines Screen Neg (NEG) Urine Cocaine Screen Neg (NEG) Urine Cannabinoids Screen Pos (NEG) Urine Ethyl Alcohol Neg (NEG) Test 06/18/20 00:59 06/18/20 02:13 06/18/20 03:25 06/18/20 04:52 Glucose (Fingerstick) 54 mg/dL (70-99) 24 mg/dL (70-99) 46 mg/dL (70-99) 41 mg/dL (70-99) Test 06/18/20 06:07 06/18/20 06:31 06/18/20 08:25 06/18/20 08:45 Glucose (Fingerstick) 336 mg/dL (70-99) 242 mg/dL (70-99) 242 mg/dL (70-99) Clostridium difficile Toxin (PCR) Negative (NEGATIVE) Test 06/18/20 09:20 06/18/20 10:39 06/18/20 12:25 06/18/20 14:19 Lactic Acid Level 0.8 mmol/L (0.4-2.0) Glucose (Fingerstick) 174 mg/dL (70-99) 147 mg/dL (70-99) 168 mg/dL (70-99) Test 06/18/20 17:23 06/18/20 21:01 06/19/20 07:31 06/19/20 11:45 Glucose (Fingerstick) 197 mg/dL (70-99) 283 mg/dL (70-99) 302 mg/dL (70-99) 211 mg/dL (70-99) Laboratory Tests Test 06/18/20 12:25 06/18/20 14:19 06/18/20 17:23 06/18/20 21:01 Glucose (Fingerstick) 147 mg/dL (70-99) 168 mg/dL (70-99) 197 mg/dL (70-99) 283 mg/dL (70-99) Test 06/19/20 07:31 06/19/20 11:45 Glucose (Fingerstick) 302 mg/dL (70-99) 211 mg/dL (70-99) Brief Hospital Course History of Present Illness Patient is a 34-year-old gentleman with significant past medical history that includes diabetes type 2 insulin requiring end-stage renal disease on hemodialysis Tuesday essential hypertension who was in his usual state of health until the evening of his admission when apparently he was dropped off by a friend after becoming unconscious at his house. Patient has a recent history of hospital stay at [facility] due to shortness of breath. When asked regarding that event the patient relates to me that he was told he had fluid in his lung. There are no records available for review. The patient has a cough that is productive of clear sputum. The patient denies any recent cold-like symptoms no coughing sneezing no shortness of breath except for what he was told was a matter of congestive heart failure. The patient denies sick contacts no fever or chills have been reported. The patient was found to have a critically low glycemia less than 40 which was treated in the emergency department and we have been asked to admit for further evaluation and treatment. At the present time the patient at the arrival in the intensive care unit is more alert and awake and will be reoriented nevertheless patient is unable to give me details of yesterday's events that led him to come to the emergency department. Patient is oriented in person time place and situation after being directed, he is not exhibiting focal neurological deficits plan of care has been explained in detail no concerns were voiced during my interview Hospital course was quite uneventful. He was quickly moved out of the intensive care unit, we have requested records from [facility] where he had been admitted and given a prescription for cefdinir due to bronchitis. The patient will continue with this medication once he goes home. He is not exhibiting any signs of acute infection, I encouraged him to follow-up with his primary care physician and the signs and symptoms of concern when to seek medical attention were discussed, we also discussed the importance of avoiding hypoglycemia given the fatal outcome that he can suffer from it. Patient is in good spirits to be going home all concerns were addressed to the best of my abilities Assessment Assessment Gen.: well-developed well-nourished in no apparent distress Head: Normal shape atraumatic Eyes: Pupils equal reactive to light and accommodation, normal conjunctivae and lids Ears: Normal shape Nose: Normal shape no trauma Mouth: No exudates of the back of throat no thrush no lesions Neck: Supple no JVD no carotid bruit or lymphadenopathy no thyromegaly Chest: Lungs clear to auscultation with good inspiratory effort no crackles rales or rhonchi Cardiovascular: S1-S2 regular rhythm no murmurs gallops or rubs Abdomen: Bowel sounds present soft nontender no hepatosplenomegaly appreciated sign Extremities: No clubbing no cyanosis no edema peripheral pulses palpated bilaterally Neurological: Alert awake oriented in person time place and situation, cranial nerves II through XII intact, no motor or sensory deficits appreciated Psych: Appropriate mood, cooperative Discharge Information Condition at Discharge: Improved Follow Up: Weeks Disposition/Orders: D/C to Home Scheduled Amlodipine Besylate (Amlodipine Besylate) 10 Mg Tablet, 10 MG PO DAILY for HTN, (Reported) Entered as Reported by: PRUDENCE PETERS on 06/18/20815 Last Action: Continued on 06/18/201027 by TEQUILA HOLLIS MD Atorvastatin Calcium (Atorvastatin Calcium) 40 Mg Tablet, 1 TAB PO DAILY for HLD, #30 Ref 5 (Reported) Entered as Reported by: PRUDENCE PETERS on 06/18/20815 Last Action: Continued on 06/18/201027 by TEQUILA HOLLIS MD Calcitriol (Calcitriol) 0.5 Mcg Capsule, 1 CAP PO DAILY for SUPPLEMENT, #90 Ref 1 (Reported) Entered as Reported by: PRUDENCE PETERS on 06/18/20815 Last Action: Converted on 06/18/201027 by TEQUILA HOLLIS MD Calcium Carbonate (Calcium Carbonate) 500 Mg Tablet, 1 TAB PO BID for SUPPLEMENT for 30 Days, #60 Ref 0 (Reported) Entered as Reported by: PRUDENCE PETERS on 06/18/20815 Last Action: Continued on 06/18/201027 by TEQUILA HOLLIS MD Carvedilol (Carvedilol) 25 Mg Tablet, 25 MG PO BIDWMEALS for CARDIAC, (Reported) Entered as Reported by: PRUDENCE PETERS on 06/18/20815 Last Action: Converted on 06/18/201027 by TEQUILA HOLLIS MD Clonidine Hcl (Clonidine Hcl) 0.1 Mg Tablet, 0.1 MG PO BID for HTN, (Reported) Entered as Reported by: PRUDENCE PETERS on 06/18/20815 Last Action: Continued on 06/18/201027 by TEQUILA HOLLIS MD Ergocalciferol (Vitamin D2) (Vitamin D2) 1,250 Mcg Capsule, 1,250 MCG PO TUESDAY for SUPPLEMENT, (Reported) Entered as Reported by: PRUDENCE PETERS on 06/18/20815 Last Action: Continued on 06/18/201027 by TEQUILA HOLLIS MD Gabapentin (Gabapentin ) 100 Mg Capsule, 100 MG PO TID for NEUROGENIC PAIN, (Reported) Entered as Reported by: PRUDENCE PETERS on 06/18/20815 Last Action: Continued on 06/18/201027 by TEQUILA HOLLIS MD Insulin Regular, Human (Novolin R) 100 Unit/1 Ml Vial, 9 UNIT IJ BIDAC for DM, (Reported) Entered as Reported by: PRUDENCE PETERS on 06/18/20815 Last Action: New Order on 06/18/20815 by PRUDENCE PETERS Pantoprazole Sodium (Pantoprazole Sodium ) 40 Mg Tablet.dr, 40 MG PO DAILYAC for GERD, (Reported) Entered as Reported by: PRUDENCE PETERS on 06/18/20815 Last Action: Continued on 06/18/201027 by TEQUILA HOLLIS MD Torsemide (Torsemide) 100 Mg Tablet, 1 TAB PO DAILY for FLUID RETENTION for 30 Days, #30 Ref 0 (Reported) Entered as Reported by: PRUDENCE PETERS on 06/18/20815 Last Action: Converted on 06/18/201027 by TEQUILA HOLLIS MD Vitamin B Complex/Folic Acid ( Vitamin B Complex Tablet) 0.4 Mg Tablet, 1 TAB PO DAILY for vitamin supplement for 30 Days, #30 Ref 0 (Reported) Entered as Reported by: PRUDENCE PETERS on 06/18/20815 Last Action: Converted on 06/18/201027 by TEQUILA HOLLIS MD Discontinued Medications Cefdinir (Cefdinir) 300 Mg Capsule, 1 CAP PO BID for Bacterial infection, #7 (Reported) Entered as Reported by: PRUDENCE PETERS on 06/18/20815 Last Taken: Unknown Dose on 06/17/20 Last Action: HELD on 06/18/201027 by TEQUILA HOLLIS MD Justicifation of Admission Dx: Justifications for Admission: Justification of Admission Dx: N/A TEQUILA HOLLIS MD Jun 19, 2020 12:24
[2020-06-19] MEDS ORDERED: CEFD300C PO (12:33)
--- NOTE | 2020-06-19 14:34 | NUR ---
Discharge Note: JENNIFER KING Discharge instructions and discharge home medications reviewed with Patient and a copy given. All questions have been answered and understanding verbalized. The following instructions and handouts were given: hypoglycemia, hypothermia, and cefdinir Discontinued lines and drains: Peripheral IV intact. Patient discharged to Home or Self Care with Self via Wheelchair
[2020-06-23] MEDS ORDERED: ERGOCALCIFEROL (VITAMIN D2) 50,000 UNIT CAPSULE. PO SCH (09:00)
== END 2020-06-19 14:36 | disposition home or self-care (01) | DRG 637 ==
LOC: ER 23:26 → 1 WEST ICU 06-18 01:29 → 2 SOUTH 06-18 18:45
PROVIDERS: ADMIT Internal Medicine; ATTEND Internal Medicine
PROC: 5A1D70Z Performance of Urinary Filtration, Intermittent, Less than 6 Hours Per Day (ICD-10-PCS; principal; 2020-06-18)
DX: E11.649 Type 2 diabetes mellitus with hypoglycemia without coma (principal); G93.41 Metabolic encephalopathy; I13.2 Hypertensive heart and chronic kidney disease with heart failure and with stage 5 chronic kidney disease, or end stage renal disease; Z79.899 Other long term (current) drug therapy; Z79.4 Long term (current) use of insulin; E11.22 Type 2 diabetes mellitus with diabetic chronic kidney disease; N18.6 End stage renal disease; T68.XXXA Hypothermia, initial encounter; I25.10 Atherosclerotic heart disease of native coronary artery without angina pectoris; E78.5 Hyperlipidemia, unspecified; I50.9 Heart failure, unspecified; Z99.2 Dependence on renal dialysis
CPT/HCPCS: 36415; 80048; 80307; 81001; 82962; 83605; 85025; 87493; 96361; 96374; 96376; J1815; J3490; J7042; 99291-25; G0378